=== PATIENT | male | born 1995 | race Caucasian/White ===

== ENCOUNTER 2021-11-08 17:58 | Emergency (ER) | payer BC ==
[~2021-11-08] VITALS: Ht 182.9 cm; Wt 113.6 kg
[2021-11-08 18:20] VITALS: TEMP 98.7
[2021-11-08] MEDS ORDERED: CYMBALTA 60MG60 MG PO (18:23)
[2021-11-08] MEDS ORDERED: PRILOSEC 20MG20 MG PO (18:23)
[2021-11-08 19:20] LABS: BASO % 0.2 % (0.0-2.0); GRAN # 8.1 K/mm3 (1.4-6.5); GRAN % 76.5 % (42.2-75.2); HEMATOCRIT 44.7 % (42.0-52.0); HEMOGLOBIN 16.4 g/dl (13.5-18.0); LYMPH # 1.9 K/mm3 (1.2-3.4); LYMPH % 17.6 % (20.0-51.0); MEAN CELL VOLUME 81 fl (80.0-100.0); MEAN CORPUSCULAR HEMOGLOBIN 30 pg (27-31); MEAN CORPUSCULAR HGB CONC 37 g/dl (33.0-37.0); MEAN PLATELET VOLUME 9.2 fl (7.4-10.4); MONO # 0.6 K/mm3 (0.1-0.6); MONO % 5.4 % (1.7-9.3); PLATELET COUNT 376 K/mm3 (130-400); RED BLOOD COUNT 5.52 M/mm3 (4.20-5.60); REDCELL DISTRIBUTION WIDTH-CV 12.1 % (11.5-14.5)
[2021-11-08 20:43] LABS: ALBUMIN 4.4 gm/dL (3.5-5.0); BILIRUBIN,TOTAL 0.7 mg/dL (0.2-1.2); CALCIUM 9.7 mg/dL (8.4-10.2); CREATININE, serum 0.79 mg/dL (0.72-1.25); POTASSIUM 3.8 mmol/L (3.5-4.5); TOTAL PROTEIN 7.9 gm/dL (6.2-8.1)
[2021-11-08 21:05] VITALS: BP 134/96; PULSE 86
== END 2021-11-08 21:05 | disposition home or self-care (01) ==
LOC: COL.ER 17:58
PROVIDERS: Nurse Practitioner Primary Care
DX: R20.2 Paresthesia of skin (principal); M79.602 Pain in left arm; M79.601 Pain in right arm
CPT/HCPCS: J1200; J7030